=== PATIENT | female | born 1990 | race Caucasian/White ===

== ENCOUNTER 2016-09-30 22:54 | Emergency (ER) | payer MEDICAID ==
--- NOTE | 2016-10-01 19:29 | ER ---
ADMIT: 09/30/2016 RM/LOC: ER [facility] MR#: [id number] [address] [id number] [place] [id number] [address] [place] [address] Emergency Room Report SEX: F AGE: 26 : 1990 DATE: 09/30/2016 The patient was signed out to me. Please refer to the main practitioner notes. The patient is a 26-year-old female, 13 to 14 weeks , came to the ER with chief complaint of vaginal bleeding. The patient had no active bleeding in the ER, cervical os was closed per previous exam. Followup ultrasound showed intrauterine with cardiac activity and mild subchorionic hemorrhage. The patient had A negative blood group and was given RhoGAM in the ER. Urine was noncontributory. Beta-hCG level was 24,620. The patient had no active bleeding, no pain in the ER. The patient was reassured, was given the handout for threatened , and was advised to follow [facility]. The patient agreed with the plan and was discharged to home. John Villa MD/ harshil JOB #: [id number] CC: John Villa MD, Attending Physician Sergio Villasenor MD, Family Physician
--- NOTE | 2016-10-03 14:54 | ER ---
ADMIT: 09/30/2016 RM/LOC: ER [facility] MR#: [id number] [address] [place] [id number] [address] [place] [address] Emergency Room Report SEX: F AGE: 26 : 1990 DATE: 09/30/2016 HISTORY OF PRESENT ILLNESS: The patient is a 26-year-old, 4, para 1 female, presents to the emergency room complaining of vaginal bleed that started at 2145 hours tonight. She had an ultrasound three weeks ago which was okay. She states that she has had placenta previa in the past and then miscarriage and a , so she wanted to get it checked tonight and make sure things were okay. She is taking prenatals. She is not allergic to any medications. Denies drinking, drugs, or alcohol. She drove herself over to the hospital for evaluation. PHYSICAL EXAMINATION: VITALS SIGNS: Within normal limits. Her blood pressure 114/59, with a heart rate of 93, respirations 16, temp is 97.7, and O2 sats 100%. GENERAL: Slightly anxious, but very pleasant and cooperative. PELVIC: She does have some active bleeding by pelvic examination which is mild. No blood clots in the vaginal vault. The cervical os is closed. No tissue present. HEENT: Normal inspection. NECK: Supple. EXTREMITIES: Well perfused. SKIN: Good color and turgor. NEUROLOGIC: Oriented x4. Mood and affect are appropriate. OBG ultrasound is pending. Beta-hCG pending. UA is pending. Rh is pending, although the patient reported Rh factor negative, but there is no verification, we are doing some labs to verify that right now. Her wet prep was negative. CLINICAL IMPRESSION: Threatened of less than 20 weeks. We were unable to obtain heart tones. Dr. Villa will be continuing with the disposition of the case, and the patient will be given RhoGAM if she is Rh negative. DISPOSITION: Pending. MINI Rosado / John Villa MD / modl JOB #: [id number] CC: John Villa MD, Attending Physician Sergio Villasenor MD, Family Physician
[2017-04-09] MEDS ORDERED: LEXAPRO DPS10 MG PO (12:00)
[2017-04-09] MEDS ORDERED: COLACE-DPS100 MG PO (12:00)
[2017-04-09] MEDS ORDERED: NIPPLECREAM TP (12:01)
[2017-04-09] MEDS ORDERED: MYLICON DPS80 MG PO (12:01)
[2017-04-09] MEDS ORDERED: PERCOCET 10 DPS1 TAB PO (12:01)
[2017-04-09] MEDS ORDERED: MOTRIN-DPS800 MG PO (12:01)
[2017-04-09] MEDS ORDERED: LAN-O-SOOTHE7 GM TP (12:02)
[2017-04-09] MEDS ORDERED: FEOSOL-DPS325 MG PO (12:02)
== END 2016-10-01 02:07 | disposition home or self-care (01) ==
LOC: ER 22:54
DX: O20.0 Threatened abortion (principal); Z3A.13 13 weeks gestation of pregnancy

== ENCOUNTER → 2016-12-10 | Outpatient (CLI) | payer MEDICAID ==
[~2016-12-10] MED LIST: COLACE-DPS100 MG PO; FEOSOL-DPS325 MG PO; LAN-O-SOOTHE7 GM TP; LEXAPRO DPS10 MG PO; MOTRIN-DPS800 MG PO; MYLICON DPS80 MG PO; NIPPLECREAM TP; PERCOCET 10 DPS1 TAB PO
== END | disposition home or self-care (01) ==
LOC: RAD.S 13:00
DX: Z36 Encounter for antenatal screening of mother (principal); Z3A.21 21 weeks gestation of pregnancy